=== PATIENT | female | born 1975 | race Caucasian/White ===

== ENCOUNTER 2016-12-06 08:29 | Emergency (ER) | payer OTHER ==
[2016-12-06] MEDS ORDERED: CEPHALEXIN 500 MG CAP PO ONE (08:54)
[2016-12-06] MEDS ORDERED: FLUCONAZOLE 150 MG TAB PO ONE (08:55)
--- NOTE | 2016-12-06 08:58 | UCPHY ---
H & P Patient Type: Established Time Seen by Provider: 12/06/16 08:51 HPI/ROS: CHIEF COMPLAINT: Urinary discomfort HISTORY OF PRESENT ILLNESS: The patient is a 40-year-old woman who comes to the Urgent Care complaining of dysuria. She states that 2 days ago she began having itching and burning and treated with [id number] antifungal creams. This did not seem to help and then today she also developed some dysuria. No fevers, no flank pain. No nausea vomiting. No diarrhea. She denies having any rash discharge. No bleeding. She denies risk of . REVIEW OF SYSTEMS: Constitutional: denies: chills, fever, recent illness, recent injury EENTM: denies: blurred vision, double vision, nose congestion Respiratory: denies: cough, shortness of breath Cardiac: denies: chest pain, irregular heart rate, lightheadedness, palpitations Gastrointestinal/Abdominal: denies: abdominal pain, diarrhea, nausea, vomiting, blood streaked stools Genitourinary: See HPI Musculoskeletal: denies: joint pain, muscle pain Skin: denies: lesions, rash, jaundice, bruising Neurological: denies: headache, numbness, paresthesia, tingling, dizziness, weakness Hematologic/Lymphatic: denies: blood clots, easy bleeding, easy bruising Immunologic/allergic: denies: HIV/AIDS, transplant EXAM: GENERAL: Well-appearing, well-nourished and in no acute distress. HEAD: Atraumatic, normocephalic. EYES: Pupils equal round and reactive to light, extraocular movements intact, sclera anicteric, conjunctiva are normal. ENT: TMs normal, nares patent, oropharynx clear without exudates. Moist mucous membranes. NECK: Normal range of motion, supple without lymphadenopathy or JVD. LUNGS: Breath sounds clear to auscultation bilaterally and equal. No wheezes rales or rhonchi. HEART: Regular rate and rhythm without murmurs, rubs or gallops. ABDOMEN: Soft, nontender, normoactive bowel sounds. No guarding, no rebound. No masses appreciated. : Declined BACK: No CVA tenderness, no spinal tenderness, step-offs or deformities EXTREMITIES: Normal range of motion, no pitting or edema. No clubbing or cyanosis. NEUROLOGICAL: Cranial nerves II through XII grossly intact. Normal speech, normal gait. 5/5 strength, normal movement in all extremities, normal sensation PSYCH: Normal mood, normal affect. SKIN: Warm, dry, normal turgor, no visible rashes or lesions. Source: Patient Exam Limitations: No limitations - Medical/Surgical History Hx Asthma: No Hx Chronic Respiratory Disease: No Hx Diabetes: No Hx Cardiac Disease: No Hx Renal Disease: No Hx Cirrhosis: No Hx Alcoholism: No Other PMH: chronic neuropathic pain - Family History Significant Family History: No pertinent family hx - Social History Smoking Status: Never smoked Alcohol Use: Sober Drug Use: None Constitutional: Initial Vital Signs Temperature (C) 36.9 C 12/06/16 08:56 Heart Rate 77 12/06/16 08:56 Respiratory Rate 16 12/06/16 08:56 Blood Pressure 121/86 H 12/06/16 08:56 O2 Sat (%) 95 12/06/16 08:56 O2 Delivery Mode Room Air Allergies/Adverse Reactions: ephedrine [Ephedrine] Allergy (Severe, Verified 12/06/16 08:58) swelling and hives Home Medications: Medication Instructions Recorded Advil 12/06/16 Cephalexin [Keflex] 500 mg PO TID #21 cap 12/06/16 Fluconazole [Diflucan (*)] 150 mg PO ONCE #0 tab 12/06/16 Fluconazole [Diflucan (*)] 150 mg PO ONCE #1 tab 12/06/16 Medical Decision Making ED Course/Re-evaluation: The patient has symptoms consistent with urinary tract infection. I will also treat her for a yeast infection which may result from antibiotics also may need to be treated independently. Patient declined pelvic examination. No visible rash. No discharge or bleeding. Differential Diagnosis: Partial list of the Differential diagnosis considered include but were not limited to; urinary tract infection, yeast infection, cellulitis , Bartholin gland cyst and although unlikely based on the history and physical exam, I also considered pelvic infection, , appendicitis, diverticulitis, kidney stone. I discussed these differential diagnoses and the plan with the patient as well as the usual and expected course. The patient understands that the diagnosis is provisional and that in medicine we are not always correct and that further workup is often warranted. Usual and customary warnings were given. All of the patient's questions were answered. The patient was instructed to return to the emergency department should the symptoms at all worsen or return, otherwise to followup with the physician as we discussed. - Data Points Laboratory Results: 12/06/16 08:46 Urine Color YELLOW Urine Appearance CLOUDY Urine pH 6.5 (5.0-7.5) Ur Specific [place] 1.010 (1.002-1.030) Urine Protein NEGATIVE (NEGATIVE) Urine Ketones NEGATIVE (NEGATIVE) Urine Blood NEGATIVE (NEGATIVE) Urine Nitrate NEGATIVE (NEGATIVE) Urine Bilirubin NEGATIVE (NEGATIVE) Urine Urobilinogen 0.2 EU EU (0.2-1.0) Ur Leukocyte Esterase 1+ H (NEGATIVE) Urine RBC 3-5 /hpf H /hpf (0-3) Urine WBC 15-25 /hpf H /hpf (0-3) Ur Epithelial Cells 2+ /lpf H /lpf (NONE-1+) Amorphous Sediment TRACE /hpf /hpf (NONE-1+) Urine Bacteria 1+ /hpf H /hpf (NONE SEEN) Ur Culture Indicated? INDICATED H (NI) Urine Glucose NEGATIVE (NEGATIVE) Medications Given: Discontinued Medications Cephalexin HCl (Keflex) 500 mg PO EDNOW ONE PRN Reason: Protocol Stop: 12/06/16 08:55 Last Admin: 12/06/16 09:02 Dose: 500 mg Fluconazole (Diflucan) 150 mg PO ONCE ONE Stop: 12/06/16 08:56 Last Admin: 12/06/16 09:07 Dose: Not Given Departure - Departure Disposition: Home, Routine, Self-Care Clinical Impression: Urinary tract infection Qualifiers: Urinary tract infection type: acute cystitis Hematuria presence: without hematuria Qualified Code(s): N30.00 - Acute cystitis without hematuria Condition: Fair Instructions: Urinary Tract Infection in Women (ED) Referrals: Nicole Beyer MD [Primary Care Provider] - As per Instructions Prescriptions: Cephalexin [Keflex] 500 mg PO TID #21 cap Fluconazole [Diflucan (*)] 150 mg PO ONCE #0 tab Fluconazole [Diflucan (*)] 150 mg PO ONCE #1 tab - PQRS PQRS Measurement: Not applicable
[2016-12-06 08:59] VITALS: BP 121/86; PULSE 77; RESP 16; TEMP 98.4; O2SAT 95
[2016-12-06 09:01] LABS: COLOR YELLOW; LEUKOCYTE ESTERASE,URINE 1+ (NEGATIVE); NITRITE,URINE NEGATIVE (NEGATIVE); PH,URINE 6.5 (5.0-7.5)
[2016-12-06 09:47] LABS: AMORPHOUS TRACE /hpf (NONE-1+); BACTERIA 1+ /hpf (NONE SEEN); WBC,URINE 15-25 /hpf (0-3)
== END 2016-12-06 09:13 | disposition home or self-care (01) ==
LOC: CED 08:29
DX: N39.0 Urinary tract infection, site not specified (principal)
CPT/HCPCS: 81003-PO; 81015-PO; 99214-PO; G0463-PO